=== PATIENT | male | born 2000 | race Hispanic/Latino ===

== ENCOUNTER 2021-01-12 18:32 | Emergency (ER) | payer BC, OTHER, SELFPAY ==
[2021-01-12] MEDS ORDERED: Acetaminophen 500 MG TAB ONE (19:12)
[2021-01-12 19:15] LABS: #Lymphocytes 1.4 thou/uL (1.20-3.40); #Monocytes 0.1 thou/uL (0.11-0.59); %Basophils 0.3 % (0.0-1.0); %Monocytes 2.4 % (0.0-10.0); %Neutrophils 72.3 % (42.0-75.0); Hemoglobin 17.1 g/dL (14.0-18.0); Mean Corpuscular HGB CONC 31.8 g/dL (32.0-36.0); Mean Corpuscular Hemoglobin 28.5 pg (27.0-31.0); Mean Corpuscular Volume 89.8 fL (78.0-98.0); Mean Platelet Volume 6.9 fL (7.4-10.4); Platelet Count 175 thou/uL (130-400); Red Blood Cell (RBC) Count 5.98 mill/uL (4.70-6.10); White Blood Cell (WBC) Count 5.5 thou/uL (4.8-10.8)
[2021-01-12 19:33] LABS: ALT (SGPT) 57 U/L (8-55); AST (SGOT) 54 U/L (5-34); Albumin 4.3 g/dL (3.5-5.0); Alkaline Phosphatase 28 U/L (40-110); Anion Gap 18 mmol/L (10-20); BUN (Urea Nitrogen) 6 mg/dL (8.9-20.6); Bilirubin, Total 0.6 mg/dL (0.2-1.2); Calc. Creatinine Clearance 0 mL/min (70-130); Calcium 9.7 mg/dL (7.8-10.44); Carbon Dioxide 24 mmol/L (22-29); Chloride 100 mmol/L (98-107); Globulin 3.3 g/dL (2.4-3.5); Glucose 116 mg/dL (70-105); Potassium 3.6 mmol/L (3.5-5.1); Protein, Total 7.6 g/dL (6.0-8.3); Sodium 138 mmol/L (136-145)
[2021-01-12] MEDS ORDERED: Sodium Chloride 0.9% 1,000 ML ONE (19:40)
[2021-01-12] MEDS ORDERED: Ondansetron PF 4 MG/2 ML Vial ONE (20:16)
[2021-01-12] MEDS ORDERED: cefTRIAXone\\ROCEPHIN 1 GM VIAL ONE (20:32)
[2021-01-12] MEDS ORDERED: Azithromycin 500 MG VIAL ONE (20:32)
[2021-01-12] MEDS ORDERED: Sodium Chloride 0.9% 250 ML 250 ML ONE (20:32)
[2021-01-12] MEDS ORDERED: Sodium Chloride 0.9% 100 ML ONE (20:32)
[2021-01-12] MEDS ORDERED: Dexamethasone 10 MG/ML VIAL ONE (20:32)
[2021-01-12] MEDS ORDERED: Ibuprofen 600 MG TAB ONE (21:02)
[2021-01-13 17:19] LABS: SARS-CoV-2 PCR by NAA DETECTED (NotDetected)
== END 2021-01-12 22:26 | disposition home or self-care (01) ==
LOC: MADERS 18:32
DX: U07.1 COVID-19 (principal); J12.82 Pneumonia due to coronavirus disease 2019
CPT/HCPCS: 36415; 71046; 80053; 83605; 85025; 87040; 87804; 96365; 96375; J0456; J0696; J1100; J2405; J3490; J7050; U0003; U0005

== ENCOUNTER 2023-01-30 08:00 | Emergency (ER) | payer BC, OTHER, SELFPAY | END 2023-01-30 10:27 | disposition home or self-care (01) | LOC: MADERS 08:00 | DX: T14.8XXA Other injury of unspecified body region, initial encounter (principal); R10.9 Unspecified abdominal pain; M54.6 Pain in thoracic spine; X50.1XXA Overexertion from prolonged static or awkward postures, initial encounter | CPT/HCPCS: 99283 ==